=== PATIENT | female | born 1990 | race Caucasian/White ===

== ENCOUNTER 2020-09-15 03:59 | Emergency (ER) | payer SELFPAY ==
[~2020-09-15] VITALS: Ht 157.5 cm; Wt 58.0 kg
[2020-09-15] MEDS ORDERED: ALBUTEROL (0.083%) 2.5MG/3ML NEB HHN STA (04:21)
[2020-09-15] MEDS ORDERED: BENZ-16 MT (04:59)
[2020-09-15] MEDS ORDERED: GUAI237L83 MT (04:59)
[2020-09-15] MEDS ORDERED: ALBU6.7H9 INH (04:59)
[2020-09-15 05:12] VITALS: BP 127/78
== END 2020-09-15 05:13 | disposition home or self-care (01) ==
LOC: ER 03:59
DX: J20.9 Acute bronchitis, unspecified (principal); Z88.0 Allergy status to penicillin; Z98.890 Other specified postprocedural states
CPT/HCPCS: 94640; 99283; Z7610